=== PATIENT | male | born 1955 | race Caucasian/White ===

== ENCOUNTER → 2016-10-23 | Outpatient (CLI) | payer BC | END | disposition home or self-care (01) | LOC: CVU 10:10 | PROVIDERS: ATTEND Internal Medicine Cardiovascular Disease | DX: I08.0 Rheumatic disorders of both mitral and aortic valves (principal); I37.1 Nonrheumatic pulmonary valve insufficiency; I10 Essential (primary) hypertension; I77.819 Aortic ectasia, unspecified site; Z95.3 Presence of xenogenic heart valve | CPT/HCPCS: 93306 ==

== ENCOUNTER → 2017-10-06 | Outpatient (CLI) | payer BC | END | disposition home or self-care (01) | LOC: CVU 09:12 | PROVIDERS: ATTEND Internal Medicine Cardiovascular Disease | DX: I35.0 Nonrheumatic aortic (valve) stenosis (principal) | CPT/HCPCS: 93306 ==

== ENCOUNTER → 2018-10-20 | Outpatient (CLI) | payer OTHER | END | disposition home or self-care (01) | LOC: CVU 12:23 | PROVIDERS: ATTEND Registered Nurse | DX: I65.23 Occlusion and stenosis of bilateral carotid arteries (principal); I07.1 Rheumatic tricuspid insufficiency; I37.1 Nonrheumatic pulmonary valve insufficiency; I10 Essential (primary) hypertension | CPT/HCPCS: 93306; 93880 ==

== ENCOUNTER 2018-11-30 11:25 | Outpatient (CLI) | payer OTHER | END 2018-11-30 23:59 | disposition home or self-care (01) | LOC: CFH 11:25 | PROVIDERS: ATTEND Internal Medicine Cardiovascular Disease | DX: R06.00 Dyspnea, unspecified (principal) | CPT/HCPCS: 71046 ==

== ENCOUNTER 2019-01-10 07:44 | Outpatient (CLI) | payer OTHER ==
[~2019-01-10 07:44] MED LIST: REGADENOSON 0.4 MG/5 ML SYRINGE ONE
[2019-01-10] MEDS ORDERED: OMNIPAQUE 350 MG/ML, 100ML BOTTLE ONE (08:30)
== END 2019-01-10 23:59 | disposition home or self-care (01) ==
LOC: CFH 07:44
PROVIDERS: ATTEND Internal Medicine Cardiovascular Disease
DX: R91.8 Other nonspecific abnormal finding of lung field (principal); J84.10 Pulmonary fibrosis, unspecified; R59.1 Generalized enlarged lymph nodes
CPT/HCPCS: 71275; 78452; 82565; 93017; A9502; J2785; Q9967

== ENCOUNTER → 2019-03-24 | Outpatient (CLI) | payer OTHER | END | disposition home or self-care (01) | LOC: CVU 12:41 | PROVIDERS: ATTEND Internal Medicine Cardiovascular Disease | DX: I08.8 Other rheumatic multiple valve diseases (principal); I10 Essential (primary) hypertension; E78.5 Hyperlipidemia, unspecified; R06.02 Shortness of breath; Z85.72 Personal history of non-Hodgkin lymphomas; Z87.891 Personal history of nicotine dependence | CPT/HCPCS: 93306 ==

== ENCOUNTER → 2019-05-23 | Outpatient (CLI) | payer OTHER ==
[~2019-05-23] MED LIST changes: +ALLO300T PO; +ASPI-650 PO; +ATOR10TA9 PO; +LEVO112T4 PO; +METO50TA82 PO; -REGADENOSON 0.4 MG/5 ML SYRINGE ONE
[2019-05-23 15:44] LABS: BASOPHILS # (AUTO) 0.04 x10^3/uL (0-0.1); BASOPHILS % (AUTO) 1 % (0-1); EOSINOPHILS # (AUTO) 0.32 x10^3/uL (0-0.4); EOSINOPHILS % (AUTO) 4 % (1-7); LYMPHOCYTES # (AUTO) 1.61 x10^3/uL (1-3.4); LYMPHOCYTES % (AUTO) 21 % (22-44); MD NO; MEAN CORPUSCULAR HEMOGLOBIN 30.5 pg (27.5-34.5); MEAN CORPUSCULAR HGB CONC 32.8 g/dL (33.2-36.2); MEAN CORPUSCULAR VOLUME 92.9 fL (81-97); MEAN PLATELET VOLUME 8.3 fL (7.4-10.4); MONOCYTES # (AUTO) 0.66 x10^3/uL (0.2-0.8); MONOCYTES % (AUTO) 9 % (2-9); NEUTROPHILS # (AUTO) 4.89 x10^3/uL (1.8-6.8); NEUTROPHILS % (AUTO) 65 % (42-75); PLATELET COUNT 209 x10^3/uL (130-400); RED BLOOD COUNT 4.81 x10^6/uL (4.38-5.82); RED CELL DISTRIBUTION WIDTH 15.6 % (9.4-14.8)
[2019-05-23 15:54] LABS: ALANINE AMINOTRANSFERASE 34 U/L (12-78); ALBUMIN 3.7 g/dL (3.4-5.0); ANION GAP 7 mmol/L (5-15); CALCIUM 9.2 mg/dL (8.5-10.1); CHLORIDE 108 mmol/L (98-107); CREATININE 1.71 mg/dL (0.7-1.3)
[2019-05-23 15:56] LABS: ALKALINE PHOSPHATASE 89 U/L (45-117); BILIRUBIN,TOTAL 0.3 mg/dL (0.2-1.0); TOTAL PROTEIN 7.9 g/dL (6.4-8.2)
== END | disposition home or self-care (01) ==
LOC: STAR 14:49
PROVIDERS: ATTEND Thoracic Surgery (Cardiothoracic Vascular Surgery)
DX: Z01.818 Encounter for other preprocedural examination (principal)
CPT/HCPCS: 36415; 80053; 85025; 93005

== ENCOUNTER 2019-06-01 06:51 | Inpatient (IN) | payer OTHER ==
[~2019-06-01] VITALS: Ht 182.9 cm; Wt 141.0 kg
[~2019-06-01 06:51] MED LIST changes: +BUPIVACAINE/PF 0.5% ONE; +EPINEPHRINE 1 MG/ML, 1ML ONE
[2019-06-01] MEDS ORDERED: LACTATED RINGERS 1,000 ML IV SCH ×2 (07:51→12:07)
[2019-06-01] MEDS ORDERED: LIDOCAINE-MPF 1%, 2ML INFIL ONE (08:00)
[2019-06-01] MEDS ORDERED: DEXAMETHASONE 4 MG/ML, 1ML ONE (08:01)
[2019-06-01] MEDS ORDERED: LIDOCAINE-MPF 2% ,5ML ONE (08:01)
[2019-06-01] MEDS ORDERED: CEFAZOLIN 1,000 MG ONE ×2 (08:01)
[2019-06-01] MEDS ORDERED: FENTANYL PF 250 MCG/5ML ONE (08:01)
[2019-06-01] MEDS ORDERED: ROCURONIUM 10MG/ML,5ML ONE (08:01)
[2019-06-01] MEDS ORDERED: ONDANSETRON 2MG/ML, 2ML ONE (08:01)
[2019-06-01] MEDS ORDERED: MIDAZOLAM 1 MG/ML, 2ML ONE (08:01)
[2019-06-01] MEDS ORDERED: PROPOFOL 10 MG/ML, 20ML ONE (08:01)
[2019-06-01] MEDS ORDERED: SUGAMMADEX 200 MG/2 ML IVPush ONE (09:54)
[2019-06-01] MEDS ORDERED: ACETAMINOPHEN 325 MG TABLET PO PRN (10:30)
[2019-06-01] MEDS ORDERED: LABETALOL 5MG/ML, 20ML IV PRN (10:30)
[2019-06-01] MEDS ORDERED: hydrALAzine 20 MG/ML, 1ML IV PRN (10:30)
[2019-06-01] MEDS ORDERED: LORazepam 2 MG/ML, 1ML IVPush PRN ×2 (10:30→12:30)
[2019-06-01] MEDS ORDERED: MEPERIDINE/PF 25MG/ML,1ML IVPush PRN (10:30)
[2019-06-01] MEDS ORDERED: OXYcodone 5 MG/5 ML ORAL.SOL UDC PO PRN (10:30)
[2019-06-01] MEDS ORDERED: ONDANSETRON 2MG/ML, 2ML IV PRN (10:30)
[2019-06-01] MEDS: FENTANYL PF 100 MCG/2ML IV PRN ×2 (12:14→12:33)
[2019-06-01] MEDS ORDERED: FENTANYL PF 100 MCG/2ML ONE (12:16)
[2019-06-01] MEDS ORDERED: OXYcodone 5 MG/5 ML ORAL.SOL UDC ONE (12:17)
[2019-06-01] MEDS ORDERED: DIPHENHYDRAMINE 50 MG/ML, 1ML IVPush PRN (12:30)
[2019-06-01] MEDS ORDERED: LORazepam 0.5MG TABLET PO PRN (12:30)
[2019-06-01] MEDS ORDERED: ENALAPRILAT 1.25 MG/ML, 2ML IVPush PRN (12:30)
[2019-06-01] MEDS ORDERED: ONDANSETRON 2MG/ML, 2ML IVPush PRN (12:30)
[2019-06-01] MEDS ORDERED: morphine SULFATE 10 MG/ML, 1ML IVPush PRN (12:30)
[2019-06-01] MEDS ORDERED: hydrALAzine 20 MG/ML, 1ML IVPush PRN (12:30)
[2019-06-01] MEDS ORDERED: FAMOTIDINE 20 MG TABLET PO SCH (12:30)
[2019-06-01] MEDS ORDERED: DIPHENHYDRAMINE 25 MG CAPSULE PO PRN (12:30)
[2019-06-01] MEDS ORDERED: HYDROmorphone 1 MG/ML, 1ML INJ ONE (12:44)
[2019-06-01] MEDS: HYDROmorphone 2 MG/ML, 1ML IVPush PRN ×3 (12:47→13:12)
[2019-06-01 13:43] VITALS: BP 129/74
[2019-06-01] MEDS: HYDROcodone/APAP 5/325 TABLET PO PRN ×2 (15:56→19:25)
[2019-06-01] MEDS: FAMOTIDINE 20 MG/2 ML IVPush SCH (16:06)
[2019-06-01 18:32] VITALS: BP 145/88
[2019-06-02] MEDS: HYDROcodone/APAP 5/325 TABLET PO PRN ×4 (00:13→19:49)
[2019-06-02 00:17] VITALS: BP 145/76
[2019-06-02] MEDS: FAMOTIDINE 20 MG/2 ML IVPush SCH ×2 (04:09→15:44)
[2019-06-02 05:22] LABS: ANION GAP 4 mmol/L (5-15); CALCIUM 8.8 mg/dL (8.5-10.1); CHLORIDE 111 mmol/L (98-107); CREATININE 1.43 mg/dL (0.7-1.3)
[2019-06-02] MEDS: LEVOTHYROXINE 112 MCG TABLET PO SCH (05:23)
[2019-06-02 05:25] LABS: BASOPHILS # (AUTO) 0.01 x10^3/uL (0-0.1); BASOPHILS % (AUTO) 0 % (0-1); EOSINOPHILS % (AUTO) 0 % (1-7); LYMPHOCYTES # (AUTO) 1.01 x10^3/uL (1-3.4); LYMPHOCYTES % (AUTO) 10 % (22-44); MD NO; MEAN CORPUSCULAR HEMOGLOBIN 30.7 pg (27.5-34.5); MEAN CORPUSCULAR HGB CONC 32.8 g/dL (33.2-36.2); MEAN CORPUSCULAR VOLUME 93.8 fL (81-97); MEAN PLATELET VOLUME 9.3 fL (7.4-10.4); MONOCYTES # (AUTO) 0.67 x10^3/uL (0.2-0.8); MONOCYTES % (AUTO) 7 % (2-9); NEUTROPHILS # (AUTO) 8.62 x10^3/uL (1.8-6.8); NEUTROPHILS % (AUTO) 84 % (42-75); PLATELET COUNT 164 x10^3/uL (130-400); RED BLOOD COUNT 4.25 x10^6/uL (4.38-5.82); RED CELL DISTRIBUTION WIDTH 15.8 % (9.4-14.8)
[2019-06-02 06:50] VITALS: BP 131/79
[2019-06-02] MEDS: ALLOPURINOL 300 MG TABLET PO SCH (08:17)
[2019-06-02] MEDS: METOPROLOL TARTRATE 50 MG TABLET PO SCH ×2 (08:17→19:47)
[2019-06-02] MEDS: ENOXAPARIN 40 MG/0.4 ML SQ SCH (08:17)
[2019-06-02 12:19] VITALS: BP 116/68
[2019-06-02 19:09] VITALS: BP 131/76
[2019-06-02] MEDS ORDERED: ATORVASTATIN 10 MG TABLET PO SCH (21:00)
[2019-06-03] MEDS: HYDROcodone/APAP 5/325 TABLET PO PRN ×2 (01:19→06:13)
[2019-06-03 01:20] VITALS: BP 133/86
[2019-06-03] MEDS: FAMOTIDINE 20 MG/2 ML IVPush SCH (06:13)
[2019-06-03] MEDS: LEVOTHYROXINE 112 MCG TABLET PO SCH (06:14)
[2019-06-03 06:23] VITALS: BP 131/83
[2019-06-03] MEDS ORDERED: HYDR-3240 PO (09:00)
[2019-06-03] MEDS: METOPROLOL TARTRATE 50 MG TABLET PO SCH (09:14)
[2019-06-03] MEDS: ALLOPURINOL 300 MG TABLET PO SCH (09:14)
[2019-06-03] MEDS: ENOXAPARIN 40 MG/0.4 ML SQ SCH (09:14)
== END 2019-06-03 09:44 | disposition home or self-care (01) | DRG 164 ==
LOC: ORIP 06:51 → 4NW 13:46 → DCLOUNGE 06-03 09:33
PROVIDERS: ADMIT Thoracic Surgery (Cardiothoracic Vascular Surgery); ATTEND Thoracic Surgery (Cardiothoracic Vascular Surgery)
PROC: 07B74ZX Excision of Thorax Lymphatic, Percutaneous Endoscopic Approach, Diagnostic (ICD-10-PCS; 2019-06-01)
PROC: 0BTG4ZZ Resection of Left Upper Lung Lobe, Percutaneous Endoscopic Approach (ICD-10-PCS; principal; 2019-06-01 09:30)
DX: C34.12 Malignant neoplasm of upper lobe, left bronchus or lung (principal); Z68.41 Body mass index [BMI] 40.0-44.9, adult; Z94.84 Stem cells transplant status; R59.0 Localized enlarged lymph nodes; E66.01 Morbid (severe) obesity due to excess calories; I10 Essential (primary) hypertension; E78.5 Hyperlipidemia, unspecified; E78.00 Pure hypercholesterolemia, unspecified; M10.9 Gout, unspecified; G62.9 Polyneuropathy, unspecified; Z86.73 Personal history of transient ischemic attack (TIA), and cerebral infarction without residual deficits; Z81.1 Family history of alcohol abuse and dependence; Z82.49 Family history of ischemic heart disease and other diseases of the circulatory system; Z85.72 Personal history of non-Hodgkin lymphomas; Z83.3 Family history of diabetes mellitus; Z72.89 Other problems related to lifestyle; Z87.891 Personal history of nicotine dependence; Z79.899 Other long term (current) drug therapy
CPT/HCPCS: 36415; J3490; S0020; 71045; 80048; 85025; 86850; 86900; 86923; 88305; 88309; 88312; 88333; 88342; C1729; G0378; J0171; J0690; J1100; J1170; J1650; J2250; J2405; J2704; J3010; C1760; J2270; J7120; Q0163

== ENCOUNTER → 2020-07-17 | Outpatient (CLI) | payer OTHER ==
[~2020-07-17] MED LIST changes: +ASPI-1026 PO; -ASPI-650 PO; -BUPIVACAINE/PF 0.5% ONE; -EPINEPHRINE 1 MG/ML, 1ML ONE; +HYDR-1067 PO
== END | disposition home or self-care (01) ==
LOC: CVU 12:10
PROVIDERS: ATTEND Internal Medicine Cardiovascular Disease
DX: I08.8 Other rheumatic multiple valve diseases (principal); I11.9 Hypertensive heart disease without heart failure
CPT/HCPCS: 93306; 93356